=== PATIENT | female | born 1985 | race Caucasian/White ===

== ENCOUNTER 2023-01-08 11:39 | Outpatient (REF) | payer MEDICAID, SELFPAY ==
[2023-01-08 13:16] LABS: MANUAL DIFF FLAG NO
[2023-01-08 13:46] LABS: Basophils Absolute Auto 0.1 X10*3/uL (0.0-0.2); Basophils Percent Auto 0.7 % (0-2); Eosinophils Absolute Auto 0.2 X10*3/uL (0.0-0.4); Eosinophils Percent Auto 2.1 % (0-4); Hematocrit 39.3 % (37.0-47.0); Hemoglobin 13.2 g/dl (12.0-16.0); Imm Gran Abs Auto 0.02 X10*3/uL (0.00-0.03); Imm Gran Pct Auto 0.2 % (0.0-0.4); Lymphocytes Absolute Auto 2.3 X10*3/uL (1.2-4.9); Lymphocytes Percent Auto 26.4 % (20-40); Mean Corpuscular HGB Conc 33.6 g/dl (31.0-35.0); Mean Corpuscular Volume 89.3 fL (80.0-98.0); Mean Platelet Volume 11.4 fL (9.4-12.3); Monocytes Absolute Auto 0.5 X10*3/uL (0.1-1.2); Monocytes Percent Auto 5.6 % (2-11); Neutrophils Absolute Auto 5.5 x10*3/uL (2.0-8.3); Platelet Count 267 X10*3/uL (160-400); Red Cell Distribution Width 12.3 % (11.0-16.0); White Blood Count 8.5 X10*3/uL (4.8-10.8)
[2023-01-08 14:07] LABS: Rheumatoid Factor < 13.0 IU/mL (<15.0)
[2023-01-08 14:08] LABS: Estimated Average Glucose 97 mg/dL
[2023-01-08 14:22] LABS: Erythrocyte Sedimentation Rate 5 MM/HR (0-20)
[2023-01-08 14:52] LABS: Alanine Aminotransferase 10 U/L (0-31); Albumin Level 4.5 g/dL (3.5-5.0); Alkaline Phosphatase 35 U/L (39-117); Anion Gap 13 (12-20); Aspartate Amino Transferase 11 U/L (5-31); Bilirubin Total 0.5 mg/dL (0.0-1.0); Blood Urea Nitrogen 14 mg/dL (9-16); C Reactive Protein < 0.10 mg/dL (< or = 0.50); Calcium 9.4 mg/dL (8.4-10.2); Carbon Dioxide 25 mmol/L (22-29); Chloride 107 mmol/L (96-108); Cholesterol 140 mg/dL; Estimated Glomerular Filt Rate > 60; Glucose Random 82 mg/dL (60-115); HDL Cholesterol 47 mg/dL; LDL Cholesterol Calculated 83 mg/dl; Potassium 4.1 mmol/L (3.3-5.1); Sodium 141 mmol/L (135-145); Total Protein 7.1 g/dL (6.5-8.0); Triglycerides 54 mg/dL
[2023-01-08 15:08] LABS: Thyroid Stimulating Hormone 1.17 uIU/mL (0.32-4.0)
[2023-01-08 15:12] LABS: Syphilis Screen Nonreactive (Nonreactive)
[2023-01-08 16:53] LABS: Appearance Urine Clear; Color Urine Yellow; Glucose Urine UA Negative (Negative); Leukocyte Esterase Urine Negative (Negative); Nitrite Urine Negative (Negative); PH 5.5 (5.0-9.0); Specific Gravity - Urine 1.025 (1.005-1.025); Urine Blood Negative (Negative); Urine Ketones Negative (Negative); Urine Protein Negative (Neg-Trace)
[2023-01-09 11:32] LABS: CT PCR NOT DETECTED (Not Detect.); NG PCR NOT DETECTED (Not Detect.)
[2023-01-10 03:41] LABS: HBS Num1 32.78 mIU/mL (0-7.99); HBc Num1 0.09 S/CO (0.00-0.79); HBsAGNum1 0.35 S/CO (0.00-0.99); HIV AB/AG Nonreactive (Nonreactive); HIV Num 1 0.07 S/CO (0.00-0.99); Hepatitis B Core Antibody Nonreactive (Nonreactive); Hepatitis B Surface Antigen Negative (Negative); ~Hepatitis B Surface Antibody REACTIVE (Nonreactive)
[2023-01-10 03:56] LABS: ~HepC Num1 0.07 S/CO (0.00-0.79); ~Hepatitis C Antibody Nonreactive (Nonreactive)
[2023-01-11 11:33] LABS: Cyclic Citrullinated Peptide <16 UNITS
[2023-01-17 13:09] LABS: Anti Nuclear Antibody Screen POSITIVE (NEGATIVE)
== END 2023-01-08 11:40 | disposition home or self-care (01) ==
LOC: HO.HHCL 11:39
PROVIDERS: Visit Provider Student in an Organized Health Care Education/Training Program
DX: Z00.00 Encounter for general adult medical examination without abnormal findings (principal); I73.00 Raynaud's syndrome without gangrene; Z20.2 Contact with and (suspected) exposure to infections with a predominantly sexual mode of transmission; F10.20 Alcohol dependence, uncomplicated
CPT/HCPCS: 0353U; 80053; 80061; 81003; 82550; 83036; 84443; 85025; 85652; 86038; 86039; 86140; 86200; 86431; 86704; 86706; 86780; 86803; 87340; 87389

== ENCOUNTER 2023-02-15 21:22 | Outpatient (REF) | payer MEDICAID, SELFPAY ==
[2023-02-19 20:34] LABS: HPV mRNA E6/E7 rflx Not Detected (Not Detected)
== END 2023-02-15 21:23 | disposition home or self-care (01) ==
LOC: HO.HHCLNP 21:22
PROVIDERS: Visit Provider Advanced Practice Midwife
DX: Z12.4 Encounter for screening for malignant neoplasm of cervix (principal); Z11.51 Encounter for screening for human papillomavirus (HPV)
CPT/HCPCS: 87624; 88142

== ENCOUNTER 2023-05-15 10:57 | Outpatient (AMB) | payer MEDICAID, SELFPAY ==
--- NOTE | 2023-05-15 10:59 | MHC.OFFVIS ---
Intake Vital Signs 05/15/23 11:08 Height 5 ft 5.08 in Weight 153 lb 14.122 oz BMI 25.5 BP 112/68 Blood Pressure Location Rt brachial Position Sitting Pulse 64 Pulse Source Pulse Oximeter Temp 97.8 F Temp Source Skin Pulse Oximetry (%) 97 Intake Visit Reasons: Raynauds/+ SELENA Intake Note: New pt presents today for consult. C/o morning stiffness, bl hand pain, worse on right wrist. Reports changes in color and painful fingers and toes. 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 Patient stated that she has had Raynaud symptoms since her teens. States that it only happens in the colder winter months. States that her fingers change color in to white, she does not recall any color change to blue or red. States that over the last year or so, her symptoms are more severe. States that currently it affect more fingers and the whitish discoloration extends all the way to the base of the fingers. States that she has managed the condition conservatively over the years. States that when she has an episodes she runs her hands under warm water for 5 minutes and is able to reverse it. She denies ever getting digital tip ulcers. She wears gloves, she has a heated chair when she watches her son playing soccer. States that over the last few months she has been noticing some morning stiffness of her fingers lasting 2-3 minutes. Denies any joint pain or swelling. She denies any skin rashes or skin tightening. Denies any fevers or weight loss. Denies any chest pain, cough or shortness of breath. She has 2 pregnancies, 1 induced and 1 live . No history of DVT/PE. States that her mother had Raynaud's all her life but there is no known family history of an autoimmune rheumatic disease. 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[employer] Female Reproductive History Menstrual Total pregnancies: 2 Full term: 1 Ab induced: 1 Review of Systems Const Denies fatigue and Denies weight loss Musc Denies arthralgias, Denies joint swelling and Reports stiffness Skin/Breast Details: Raynaud's Neuro Reports no additional complaints Endo Denies fatigue Physical Exam Vital Signs: Last Vital Signs Temp 97.8 F 05/15/23 11:08 Pulse 64 05/15/23 11:08 BP 112/68 05/15/23 11:08 Pulse Ox 97 05/15/23 11:08 BMI result Body Mass Index 25.5 Const General: cooperative and healthy appearing Nutritional Appearance: well nourished Orientation/consciousness: patient oriented x3 Limitations: no limitations HEENT Head: Yes normocephalic and Yes atraumatic Mouth: moist mucous membranes Resp Effort & Inspection: normal respiratory effort and able to speak in complete sentences Auscultation: clear to auscultation bilaterally Cardio Rate: regular rate Rhythm: regular rhythm Heart sounds: S1 normal heart sound present and S2 normal heart sound present GI Inspection: No distended Palpation (GI): Soft to palpation and nontender Skin General skin exam: no rashes or lesions noted Neuro General: patient oriented x3 Extrem Other: Mild osteoarthritic changes of both hands with no active synovitis Normal nailfold capillaroscopy of fingers and toes No skin thickening noted Proximal muscle strength 5/5 all 4 extremities No tendon friction rubs of wrists, hands, ankles, knees, elbows Assessment & Plan Assessment & Plan (1) SELENA positive: Code(s): R76.8 - Other specified abnormal immunological findings in serum (2) Raynaud's phenomenon without gangrene: Code(s): I73.00 - Raynaud's syndrome without gangrene Plan: This is a 37-year-old female who is referred for evaluation of a positive SELENA in the context of Raynaud's. Patient has had Raynaud's since her teens. There is no history of digital ulcers. Symptoms are benign and patient is able to reverse it. Labs showed positive SELENA in a he moderate dose nucleolar pattern. There is no skin thickening or in exam. She has normal finger and toe nailfold capillaroscopy. Will order comprehensive serology to screen for underlying autoimmune rheumatic disease. Discussed conservative measures for Raynaud's. Follow-up in 4 weeks Plan I spent 46 minutes reviewing patient's chart, evaluating patient, ordering diagnostic workup, counseling patient and documenting in the chart Orders: Orders Anti DNA DS Antibody Today M32.9 - Systemic lupus erythematosus, unspecified C Reactive Protein Today M32.9 - Systemic lupus erythematosus, unspecified Erythrocyte Sedimentation Rate Today M32.9 - Systemic lupus erythematosus, unspecified Protein Creatinine Ratio, Ur Today M32.9 - Systemic lupus erythematosus, unspecified Sjogren's Antibodies Today M32.9 - Systemic lupus erythematosus, unspecified Scleroderma 12 Panel Today I73.00 - Raynaud's syndrome without gangrene, M34.9 - Systemic sclerosis, unspecified, R76.8 - Other specified abnormal immunological findings in serum Anti Extractable Nuclear Ag Today M32.9 - Systemic lupus erythematosus, unspecified Complement C3 Today M32.9 - Systemic lupus erythematosus, unspecified Complement C4 Today M32.9 - Systemic lupus erythematosus, unspecified UA w Microscopic Today M32.9 - Systemic lupus erythematosus, unspecified Complete Blood Count Auto Diff Today R76.8 - Other specified abnormal immunological findings in serum Comprehensive Met. Panel Today R76.8 - Other specified abnormal immunological findings in serum Coding Level of Care Code New Pt Level 4 (97189) Diagnoses SELENA positive R76.8 Raynaud's phenomenon without gangrene I73.00
[2023-05-15 11:08] VITALS: BP 112/68; PULSE 64; TEMP 36.6; O2SAT 97; BMI 25.5
== END 2023-05-15 11:46 | disposition home or self-care (01) ==
PROVIDERS: PCP Student in an Organized Health Care Education/Training Program; Referring Provider Student in an Organized Health Care Education/Training Program; Visit Provider Student in an Organized Health Care Education/Training Program
DX: R76.8 Other specified abnormal immunological findings in serum (principal); I73.00 Raynaud's syndrome without gangrene
CPT/HCPCS: 99204

== ENCOUNTER → 2023-05-15 10:57 | Outpatient (BNVA) | payer MEDICAID, SELFPAY | PROVIDERS: PCP Student in an Organized Health Care Education/Training Program; Referring Provider Student in an Organized Health Care Education/Training Program; Visit Provider Student in an Organized Health Care Education/Training Program | DX: I73.00 Raynaud's syndrome without gangrene (principal); R76.8 Other specified abnormal immunological findings in serum | CPT/HCPCS: 36415; 80053; 81001; 82570; 84156; 84182; 85025; 85652; 86140; 86160; 86225; 86235; 99202 ==

== ENCOUNTER 2023-05-15 11:50 | Outpatient (REF) | payer MEDICAID, SELFPAY ==
[2023-05-15 13:09] LABS: MANUAL DIFF FLAG NO
[2023-05-15 13:17] LABS: Basophils Absolute Auto 0.1 X10*3/uL (0.0-0.2); Basophils Percent Auto 0.8 % (0-2); Eosinophils Absolute Auto 0.2 X10*3/uL (0.0-0.4); Eosinophils Percent Auto 1.6 % (0-4); Hematocrit 40.1 % (37.0-47.0); Hemoglobin 13.6 g/dl (12.0-16.0); Imm Gran Abs Auto 0.01 X10*3/uL (0.00-0.03); Imm Gran Pct Auto 0.1 % (0.0-0.4); Lymphocytes Absolute Auto 2.9 X10*3/uL (1.2-4.9); Lymphocytes Percent Auto 31.1 % (20-40); Mean Corpuscular HGB Conc 33.9 g/dl (31.0-35.0); Mean Corpuscular Hemoglobin 30.1 pg (27.0-33.0); Mean Corpuscular Volume 88.7 fL (80.0-98.0); Mean Platelet Volume 10.9 fL (9.4-12.3); Monocytes Absolute Auto 0.7 X10*3/uL (0.1-1.2); Neutrophils Absolute Auto 5.5 x10*3/uL (2.0-8.3); Neutrophils Percent Auto 59.4 % (45-73); Platelet Count 244 X10*3/uL (160-400); Red Blood Count 4.52 X10*6/uL (4.20-5.50); Red Cell Distribution Width 12.2 % (11.0-16.0); White Blood Count 9.2 X10*3/uL (4.8-10.8)
[2023-05-15 13:58] LABS: Appearance Urine Clear; Color Urine Yellow; Glucose Urine UA Negative (Negative); Leukocyte Esterase Urine Negative (Negative); Nitrite Urine Negative (Negative); Urine Blood Negative (Negative); Urine Ketones Negative (Negative); Urine Protein Negative (Neg-Trace)
[2023-05-15 14:01] LABS: Bacteria Urine None Seen (None Seen); Erythrocyte Sedimentation Rate 3 MM/HR (0-20); Hyaline Casts Urine 0-2 /LPF (0-2); RBC Urine 0-2 /HPF (0-2); Squamous Epithelial Cell Urine 0-2 /HPF (0-2); WBC Urine 0-5 /HPF (0-5)
[2023-05-15 14:10] LABS: Alanine Aminotransferase 11 U/L (0-31); Albumin Level 4.7 g/dL (3.5-5.0); Alkaline Phosphatase 33 U/L (39-117); Anion Gap 9 (12-20); Aspartate Amino Transferase 16 U/L (5-31); Bilirubin Total 0.4 mg/dL (0.0-1.0); Blood Urea Nitrogen 14 mg/dL (9-16); C Reactive Protein < 0.10 mg/dL (< or = 0.50); Calcium 9.5 mg/dL (8.4-10.2); Carbon Dioxide 28 mmol/L (22-29); Chloride 104 mmol/L (96-108); Estimated Glomerular Filt Rate > 60; Glucose Random 94 mg/dL (60-115); Sodium 137 mmol/L (135-145); Total Protein 7.3 g/dL (6.5-8.0)
[2023-05-15 14:46] LABS: Creatinine Urine 93.24 mg/dL; Total Protein Urine Random < 7 mg/dL (<12)
[2023-05-16 13:08] LABS: Complement C3 80 mg/dL (83-193)
[2023-05-18 22:23] LABS: Anti DNA DS Antibody <1 IU/mL; Antibody to SS-A Antigen <1.0 NEG AI (<1.0 NEG); Antibody to SS-B Antigen <1.0 NEG AI (<1.0 NEG); SM/Ribonucleoprotein Ab <1.0 NEG AI (<1.0 NEG); Smith Protein <1.0 NEG AI (<1.0 NEG)
[2023-05-22 15:33] LABS: Centromere Protein A Ab <11 SI (<11); Centromere Protein B Ab <11 SI (<11); Fibrillarin Ab <11 SI (<11); PM SCL 100 Ab <11 SI (<11); PM SCL 75 Ab <11 SI (<11); RNA Polymerase III RP11 Ab <11 SI (<11); RNA Polymerase III RP155 Ab <11 SI (<11); SCL-70 Extractable Nuclear Ab <11 SI (<11); Th-To Ab <11 SI (<11); U1 SNRNP RNP 70KD <11 SI (<11); U1 SNRNP RNP A <11 SI (<11); U1 SNRNP RNP C <11 SI (<11)
== END 2023-05-15 11:51 | disposition home or self-care (01) ==
LOC: HO.10HDL 11:50
PROVIDERS: Visit Provider Student in an Organized Health Care Education/Training Program
DX: M32.9 Systemic lupus erythematosus, unspecified (principal); R76.8 Other specified abnormal immunological findings in serum; M34.9 Systemic sclerosis, unspecified; I73.00 Raynaud's syndrome without gangrene
CPT/HCPCS: 36415; 80053; 81001; 82570; 84156; 84182; 85025; 85652; 86140; 86160; 86225; 86235

== ENCOUNTER 2023-06-22 07:37 | Outpatient (AMB) | payer MEDICAID, SELFPAY ==
--- NOTE | 2023-06-22 07:40 | A.OFFVIS_ITS ---
Intake Vital Signs 06/22/23 07:41 Height 5 ft 3.5 in Weight 154 lb 8.705 oz BMI 26.9 BP 108/70 Blood Pressure Location Lt brachial Position Sitting Pulse 78 Pulse Source Pulse Oximeter Temp 97.6 F Temp Source Skin Pulse Oximetry (%) 99 Oxygen Delivery Method Room Air Intake Visit Reasons: Raynaud's Intake Note: Pt last seen 05/15/23 presents today for follow up and test results. 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 In the morning today it was quite cold and some of her fingers are white in clinic. Initial history: This is a 37-year-old female who presents for evaluation of a positive SELENA in the context of Raynaud's. Patient stated that she has had Raynaud symptoms since her teens. States that it only happens in the colder winter months. States that her fingers change color in to white, she does not recall any color change to blue or red. States that over the last year or so, her symptoms are more severe. States that currently it affect more fingers and the whitish discoloration extends all the way to the base of the fingers. Stat es that she has managed the condition conservatively over the years. States that when she has an episodes she runs her hands under warm water for 5 minutes and is able to reverse it. She denies ever getting digital tip ulcers. She wears gloves, she has a heated chair when she watches her son playing soccer. States that over the last few months she has been noticing some morning stiffness of her fingers lasting 2-3 minutes. Denies any joint pain or swelling. She denies any skin rashes or skin tightening. Denies any fevers or weight loss. Denies any chest pain, cough or shortness of breath. She has 2 pregnancies, 1 induced and 1 live . No history of DVT/PE. States that her mother had Raynaud's all her life but there is no known family history of an autoimmune rheumatic disease. 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 [employer] Review of Systems Skin/Breast Details: Raynaud's Physical Exam Vital Signs: Last Vital Signs Temp 97.6 F 06/22/23 07:41 Pulse 78 06/22/23 07:41 BP 108/70 06/22/23 07:41 Pulse Ox 99 06/22/23 07:41 Oxygen Delivery Method Room Air 06/22/23 07:41 BMI result Body Mass Index 26.9 Const General: cooperative and healthy appearing Nutritional Appearance: well nourished Orientation/consciousness: patient oriented x3 Limitations: no limitations HEENT Head: Yes normocephalic and Yes atraumatic Mouth: moist mucous membranes Resp Effort & Inspection: normal respiratory effort and able to speak in complete sentences Skin General skin exam: no rashes or lesions noted Neuro General: patient oriented x3 Extrem Other: Mild osteoarthritic changes of both hands with no active synovitis Clear Raynaud's with few white and cool fingertips Normal nailfold capillaroscopy of fingers and toes No skin thickening noted Assessment & Plan Assessment & Plan (1) SELENA positive: Code(s): R76.8 - Other specified abnormal immunological findings in serum (2) Raynaud's phenomenon without gangrene: Code(s): I73.00 - Raynaud's syndrome without gangrene Plan: This is a 37-year-old female who is referred for evaluation of a positive SELENA in the context of Raynaud's. Patient has had Raynaud's since her teens. There is no history of digital ulcers. Symptoms are benign and patient is able to reverse it. Labs showed positive SELENA in homogeneous nucleolar pattern. There is no skin thickening or in exam. She has normal finger and toe nailfold capillaroscopy. Comprehensive serology connective tissue diseases is negative There is no evidence of an underlying autoimmune rheumatic disease. This is likely primary Raynaud's. Discussed conservative measures for Raynaud's. Such as keeping core and extremity temperature warm, wearing gloves, considering glove warmers, heated gloves. Advised patient to come back to clinic if she has any new or worsening symptoms. Plan I spent 16 minutes reviewing patient's chart, evaluating patient, counseling patient and documenting in the chart Coding Level of Care Code Est Pt Level 3 (10844) Diagnoses SELENA positive R76.8 Raynaud's phenomenon without gangrene I73.00
[2023-06-22 07:41] VITALS: BP 108/70; PULSE 78; TEMP 36.4; O2SAT 99; BMI 26.9
== END 2023-06-22 07:54 | disposition home or self-care (01) ==
PROVIDERS: PCP Student in an Organized Health Care Education/Training Program; Visit Provider Student in an Organized Health Care Education/Training Program
DX: R76.8 Other specified abnormal immunological findings in serum (principal); I73.00 Raynaud's syndrome without gangrene
CPT/HCPCS: 99213

== ENCOUNTER → 2023-06-22 07:37 | Outpatient (BNVA) | payer MEDICAID, SELFPAY | PROVIDERS: PCP Student in an Organized Health Care Education/Training Program; Visit Provider Student in an Organized Health Care Education/Training Program | DX: R76.8 Other specified abnormal immunological findings in serum (principal); I73.00 Raynaud's syndrome without gangrene | CPT/HCPCS: 99212 ==

== ENCOUNTER 2024-02-05 18:12 | Outpatient (REF) | payer MEDICAID, SELFPAY ==
[2024-02-10 09:02] LABS: HPV mRNA E6/E7 Not Detected (Not Detected)
== END 2024-02-05 18:13 | disposition home or self-care (01) ==
LOC: HO.HHCLNP 18:12
PROVIDERS: Visit Provider Advanced Practice Midwife
DX: Z12.4 Encounter for screening for malignant neoplasm of cervix (principal)
CPT/HCPCS: 36415; 87624; 88175

== ENCOUNTER 2024-03-04 09:14 | Outpatient (REF) | payer MEDICAID, SELFPAY ==
--- NOTE | ~2024-03-04 | XR_ITS ---
EXAMINATION: XR FOOT, RIGHT XR FOOT, LEFT CLINICAL INFORMATION: Heel pain. Pain times years. No injury. COMPARISON: None available. TECHNIQUE: AP, lateral, and oblique views of the left foot and AP and lateral views of the right foot. FINDINGS: RIGHT FOOT: No fracture or malalignment. Bone mineralization is normal. Joint spaces appear well preserved. Small enthesopathic spurs are present at the Achilles tendon insertion and plantar fascial origin on the calcaneus. No erosions or periostitis. Soft tissues are unremarkable on these images. LEFT FOOT: No fracture or malalignment. Bone mineralization is normal. Joint spaces appear well preserved. Soft tissues are unremarkable. Small enthesopathic spur is present at the Achilles tendon insertion on the calcaneus. Small os supranaviculare. XR/XR foot LT min 3V IMPRESSION: 1. Small enthesopathic spurs at the Achilles tendon insertions on the calcaneus bilaterally. 2. Small enthesopathic spur at the right plantar fascial origin. Electronically signed by: Raul Wasserman MD 03/07/2024 11:50 AM EDT
--- NOTE | ~2024-03-04 | XR_ITS ---
EXAMINATION: XR FOOT, RIGHT XR FOOT, LEFT CLINICAL INFORMATION: Heel pain. Pain times years. No injury. COMPARISON: None available. TECHNIQUE: AP, lateral, and oblique views of the left foot and AP and lateral views of the right foot. FINDINGS: RIGHT FOOT: No fracture or malalignment. Bone mineralization is normal. Joint spaces appear well preserved. Small enthesopathic spurs are present at the Achilles tendon insertion and plantar fascial origin on the calcaneus. No erosions or periostitis. Soft tissues are unremarkable on these images. LEFT FOOT: No fracture or malalignment. Bone mineralization is normal. Joint spaces appear well preserved. Soft tissues are unremarkable. Small enthesopathic spur is present at the Achilles tendon insertion on the calcaneus. Small os supranaviculare. XR/XR foot RT 2V IMPRESSION: 1. Small enthesopathic spurs at the Achilles tendon insertions on the calcaneus bilaterally. 2. Small enthesopathic spur at the right plantar fascial origin. Electronically signed by: Raul Wasserman MD 03/07/2024 11:50 AM EDT
[2024-03-04 11:24] LABS: Hemoglobin 13.3 g/dl (12.0-16.0); Mean Corpuscular HGB Conc 34.1 g/dl (31.0-35.0); Mean Platelet Volume 10.9 fL (9.4-12.3); Platelet Count 262 X10*3/uL (160-400); Red Blood Count 4.43 X10*6/uL (4.20-5.50); Red Cell Distribution Width 12.1 % (11.0-16.0); White Blood Count 8.3 X10*3/uL (4.8-10.8)
[2024-03-04 11:36] LABS: Estimated Average Glucose 103 mg/dL; Hemoglobin A1c % 5.2 % (<6.0)
[2024-03-04 12:08] LABS: Alanine Aminotransferase 9 U/L (0-31); Albumin Level 4.4 g/dL (3.5-5.0); Alkaline Phosphatase 32 U/L (39-117); Anion Gap 10 (12-20); Aspartate Amino Transferase 14 U/L (5-31); Bilirubin Total 1.1 mg/dL (0.0-1.0); Blood Urea Nitrogen 13 mg/dL (9-16); Calcium 9.3 mg/dL (8.4-10.2); Carbon Dioxide 27 mmol/L (22-29); Chloride 107 mmol/L (96-108); Cholesterol 143 mg/dL (<200); Estimated Glomerular Filt Rate > 60; Glucose Random 101 mg/dL (60-115); HDL Cholesterol 48 mg/dL (>40); LDL Cholesterol Calculated 77 mg/dL (<100); Potassium 3.9 mmol/L (3.3-5.1); Sodium 140 mmol/L (135-145); Triglycerides 91 mg/dL (<150)
[2024-03-04 12:12] LABS: HBS Num1 33.96 mIU/mL (0-7.99); HBc Num1 0.23 S/CO (0.00-0.79); HBsAGNum1 0.23 S/CO (0.00-0.99); HIV AB/AG Nonreactive (Nonreactive); HIV Num 1 0.05 S/CO (0.00-0.99); Hepatitis B Core Antibody Nonreactive (Nonreactive); Hepatitis B Surface Antigen Negative (Negative); ~HepC Num1 0.11 S/CO (0.00-0.79); ~Hepatitis B Surface Antibody REACTIVE (Nonreactive); ~Hepatitis C Antibody Nonreactive (Nonreactive)
[2024-03-04 12:16] LABS: TSH reflex Free T4 0.76 uIU/mL (0.32-4.0)
[2024-03-04 12:26] LABS: Syphilis Screen Nonreactive (Nonreactive)
== END 2024-03-04 09:15 | disposition home or self-care (01) ==
LOC: HO.HHCL 09:14
PROVIDERS: Visit Provider Student in an Organized Health Care Education/Training Program
DX: Z00.00 Encounter for general adult medical examination without abnormal findings (principal); M79.671 Pain in right foot; M79.672 Pain in left foot
CPT/HCPCS: 36415; 73620; 73630; 80053; 80061; 83036; 84443; 85027; 86704; 86706; 86780; 86803; 87340; 87389

== ENCOUNTER 2025-02-10 17:36 | Outpatient (REF) | payer MEDICAID, SELFPAY | END 2025-02-10 17:37 | disposition home or self-care (01) | LOC: HO.HHCLNP 17:36 | PROVIDERS: Visit Provider Advanced Practice Midwife | DX: Z12.4 Encounter for screening for malignant neoplasm of cervix (principal); Z11.51 Encounter for screening for human papillomavirus (HPV) | CPT/HCPCS: 87626; 88175 ==

== ENCOUNTER 2025-02-27 11:37 | Outpatient (REF) | payer BC, MEDICAID, SELFPAY ==
--- OUTSIDE RECORDS SUMMARY | 2025-02-27 12:37 | XMS_ITS | Encounter Summary ---
Author Organization [employer] Address [address] [place] [address] 7 [place] [address] Care Team Providers Care Alumina Plant Supervisor Name Role Phone Viridiana Ruth MD Primary Care Pro vider Reason for Visit * Reason Comments Med Refill Encounter Details Date Type Department Care Team ([facility] st Contact Info) Description 01/11/2023 Refill [facility] [address] [place], [place] [phone] Viridiana Ruth MD [address] [place] [address] Social History Tobacco Use Types Packs/Day Years Used Date Smoking Tobacco: Never Passive Smoke Exposure: Never Smokeless Tobacco: Never Alcohol Use Standard Drinks/Week Comments Not Currently 0 (1 standard drink = 0.6 oz pure alcohol) 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 No / Unsure 01/08/2023 9:12 AM EDT documented as of this encounter Plan of Treatment Not on file documented as of this encounter Visit Diagnoses Not on filedocumented in this encounter Additional Health Concerns Assessment Noted Time PHQ-9 Depression Total Score: 10 023 9:25 AM EDT documented as of this encounter Care Teams Alumina Plant Supervisor Relationship Specialty Start Date End Date Viridiana Ruth MD [address] [place] [id number] PCP - General Internal Medicine 11/10/22 documented as of this encounter
--- OUTSIDE RECORDS SUMMARY | 2025-02-27 12:37 | XMS_ITS | Encounter Summary ---
Author Organization [employer] Address [address] [facility] [address] [place] [address] Care Team Providers Care Small Equipment Operator Name Role Phone Viridiana Ruth MD Primary Care Pro vider Encounter Details Date Type Department Care Team ([facility] st Contact Info) Description 02/16/2025 Results Follow-Up [facility] [address] [place], [place] [phone] Rochelle Baldwin, JAIDA [address] [place] [address] Pap Smear Social History Tobacco Use Types Packs/Day Years Used Date Smoking Tobacco: Never Passive Smoke Exposure: Never Smokeless Tobacco: Never Alcohol Use Standard Drinks/Week Comments Not Currently 0 (1 standard drink = 0.6 oz pure alcohol) hx of alcoholism since 20 y of age -stopped 3 y -2021 Depression Answer Date Recorded Patient Health Questionnaire-9 Score 0 01/19/2025 Patient Health Questionnaire-9 Score 0 01/19/2025 Last PHQ-9: Questionnaire Data Not on file 0 01/19/2025 Housing Stability Answer Date Recorded What is your housing situation today? I have russel hoffman 01/12/[address] you li ve. Do you have problems with any of the following? None of the above 01/12/2025 Food Insecurity Answer Date Recorded Within the past 12 months, y ou worried that your food would run out before you got money to buy more: Never True 01/12/2025 Within the past 12 months,th e food you bought just didn't last and you didn't have enough money to get more: Never True Transportation Answer Date Recorded In the past 12 months, has l ack of transportation kept you from medical appts, meetings, work or from getting things needed for daily living? No 01/12/2025 Utilities Answer Date Recorded In the past 12 months, has t he electric, gas, oil or water company threatened to shut off services in your home? No 01/12/2025 Depression Answer Date Recorded Patient Health Questionnaire-2 Score 0 01/19/2025 Internet Access Answer Date Recorded Internet Access Q1 Yes 01/12/2025 Internet Access Q2 Not on file 01/12/2025 Comments No Sex and Gender Information Value Date Recorded Sex Assigned at Female 05/01/2022 10:36 AM EDT Legal Sex Female 10:36 AM EDT Gender Identity Female 05/01/2022 10:36 AM EDT Sexual Orientation Bisexual 01/08/2023 9: 46 AM EDT documented as of this encounter Plan of Treatment Not on file documented as of this encounter Visit Diagnoses Not on filedocumented in this encounter Additional Health Concerns Assessment Noted Time PHQ-9 Depression Total Score: 0 01/20/20 25 2:04 PM EDT documented as of this encounter Care Teams Small Equipment Operator Relationship Specialty Start Date End Date Viridiana Ruth MD [address] [place] [id number] PCP - General Internal Medicine 11/10/22 documented as of this encounter
--- OUTSIDE RECORDS SUMMARY | 2025-02-27 12:37 | XMS_ITS | Clinical Summary ---
Author Organization [employer] Address [address] [facility] [address] [place] [address] Care Team Providers Care Senior Payroll Manager Name Role Phone Viridiana Ruth MD Primary Care Pro vider Allergies No known active allergies Medications * This document contains information received from the source organization and may not represent a complete record from that organization. No known medications Active Problems Problem Noted Date Diagnosed Date Overweight (BMI 25.0-29.9) 01/19/2025 Abnormal tympanic membrane of both ears 01/20/20 25 History of alcohol abuse 03/08/2024 Family history of cancer 01/10/2024 Bilateral foot pain 01/10/2024 Nevus of multiple sites 01/10/2024 SELENA positive 02/06/2023 Assessment & Plan (02/06/2023 6:15 AM EDT): Reports also arthralgia in her hands and in am rigidity < 20 min , no erythema ,no swelling, myalgias in muscle of hands ,arms. 12/2022: SELENA reported as + 1:80 w nuclear homogeneous nucleolar findings. Per report, possibly associated w systemic sclerosis, scleroderma, or polymyositis overlap. ESR/CRP wnl. Anti-CCP rheumatoid factor neg. CK wnl. -Referred to investment analyst today. Raynaud disease 01/08/2023 Assessment & Plan (02/06/2023 6:08 AM EDT): -Pt reports having since she was in her 20 y of age extreme cold intolerance in her hands and feet ,when exposed to cold temperature fingers get cold and pale and having pain associated,States symptoms are getting worse with time.Denies black/bluish discoloration of fingers. Reports also arthralgia in her hands and in am rigidity < 20 min , no erythema ,no swelling, myalgias in muscle of hands ,arms.Denies skin rashes,fever, Dysphagia, gastroesophageal reflux,Skin thickening, sclerodactyly nor Cardiopulmonary abnormalities. Does reports mother has dx of Raynauld dx Denies Occupational and environmental exposures,not taking medications. Pt showed me videos in her phone of her hands been extremely pale ( from 2nd to 5th digits ) and improved under hot water. -Advise pt to avoid cold exposure -Advise to avoid vasoconstriction Rx. Explained to pt today which Rx to avoid. -Start Amlodipine 2.5 mg daily px at last visit but not started yet -Given that she reported hand pain and rigidity in the AM, done SELENA reported as + 1:80 w nuclear homogeneous nucleolar findings. Per report, possibly associated w systemic sclerosis, scleroderma, or polymyositis overlap. -Referred today to investment analyst for + SELENA / Raynaud Syndrome Assessment & Plan (01/08/2023 9:29 PM EDT): -Pt reports having since she was in her 20 y of age extreme cold intolerance in her hands and feet ,when exposed to cold temperature fingers get cold and pale and having pain associated,States symptoms are getting worse with time.Denies black/bluish discoloration of fingers. Reports also arthralgia in her hands and in am rigidity < 20 min , no erythema ,no swelling, myalgias in muscle of hands ,arms.Denies skin rashes,fever, Dysphagia, gastroesophageal reflux,Skin thickening, sclerodactyly nor Cardiopulmonary abnormalities. Does reports mother has dx of Raynauld dx Denies Occupational and environmental exposures,not taking medications. Pt showed me videos in her phone of her hands been extremely pale ( from 2nd to 5th digits ) and improved under hot water. -Advise pt to avoid cold exposure -Advise to avoid vasoconstriction Rx. Explained to pt today which Rx to avoid. -Start Amlodipine 2.5 mg daily and if tolerated and needed can increase up to 5 mg / d (2 tablets / d). -Given that she reported hand pain and rigidity in the AM, will check autoimmune panel. -Will monitor at next visit. Depression with anxiety 01/08/2023 Assessment & Plan (02/06/2023 6:13 AM EDT): PHQ-9: 9 <-- 10 at last visit. States feeling better now. -Reports feeling sad, anxious since last 17 years , denies jordana,hallucinations. Denies SI , never tx for depression before. Denies fx hx of psychiatric conditions. -Already started care w outpt psychotherapy. -Will consider antidepressants if no improvement w therapy. I will follow pt in 3 mo. Assessment & Plan (01/08/2023 2:09 PM EDT): Assessment: Sun was engaged with active reflective listening and open-ended questions. Assessed symptoms, risks, and social supports with direct questions. Discussed current symptoms intensity and frequency. Emotions were normalized and validated. She identified use of cannabis as coping mechanisms and her family as protective factors. Provided psychoeducation around coping mechanism to manage anxiety and depression. Discussed OP therapy and Medication Management, she reported was interested in Ind. Therapy only at this time. Provided education around integrated medicine and the options of follow up BE's as needed. Provided contact information should questions or concerns arise. Plan: Sun will engage in effective coping mechanisms provided at least 2 times per day for 6 months to learn to manage her sxs. Referral for Ind. Therapy will be submitted. Patient with lack of motivation, feeling down, sleeping too much, little energy, trouble with concentration, feeling anxious, persistent worry, unable to relax at times, irritable at times, fearfulness of something bad might happened. She denies SI, HI, AVH or self-harm. 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 Patient will benefit from Ind. Therapy ( CBT to learn different ways to identify and manage the factors that contribute to her anxiety and depressive sxs. At this time Sun Ferrer meets criteria for Visit Diagnoses: Problem List Items Addressed This Visit Other Depression with anxiety Patient ready to address current needs Yes Strengths include Sun is in action stage fo change and her motivation will serve as treatment engagement. PLAN: 1. Follow up with [facility]: Not recommended for follow-up 2. Patient goal is to learn to manage her sxs. 3. Behavioral Recommendations a. Ind. Therapy b. Use of coping Skills discussed c. [facility] contact number for support. Assessment & Plan (01/08/2023 9:33 PM EDT): PHQ-9 10. -Reports feeling sad, anxious since last 17 years , denies jordana,hallucinations. Denies SI , never tx for depression before. Denies fx hx of psychiatric conditions. - spoke w pt today and will refer to outpt psychotherapy. -Will consider antidepressants if no improvement w therapy. I will follow pt in 4 wk. Health care maintenance 01/08/2023 Assessment & Plan (02/06/2023 6:13 AM EDT): -Pap smear: 01/2020 Ascus/HPV neg--- referred today to Georgia Mckenna for Pap smear -Contraception: none, denies active sexual life. Advise to let me know once it starts to begin contraception. Advise condom use if needed. -labs x annual exam done in 12/2022 - not in [facility] system, but to be scanned -Vaccines: s/p COVID-19 x 2, bivalent x1,, Tdap 2022, HPV advised to start series - pt will think about it and go to vaccine clinic if interested, Hep B immune Assessment & Plan (01/08/2023 9:37 PM EDT): -Pap smear: 01/2020 Ascus/HPV neg--- referred today to Georgia Mckenna for Pap smear -Contraception: none, denies active sexual life. Advise to let me know once it starts to begin contraception. Advise condom use if needed. -labs x annual exam today in fasting -pt agreed to have STI testing including HIV to have for baseline -Vaccines: s/p COVID-19 x 2, bivalent today, Tdap today, HPV advised to start series - pt will think about it and go to vaccine clinic if interested. Atypical squamous cells of u ndetermined significance (ASCUS) on Papanicolaou smear of cervix 01/19/2021 Encounters Date Type Department Care Team Description 02/16/2025 Results Follow-Up [facility] [address] [place] [phone] Skyler Mckenna CNM Pap Smear 02/10/2025 3:15 PM EDT Office Visit [facility] [address] [place] [address] Skyler Mckenna CNM Cervical cancer screening (Primary Dx); Abnormal uterine bleeding 02/10/2025 Travel 02/10/2025 Telephone [facility] [address] [place] [phone] Rachel TrinhUNADILLA, [place] 01/26/2025 Telephone [facility] [address] [place] [address] [phone] Rachel TrinhUNADILLA, [place] 01/19/2025 2:00 PM EDT Office Visit [facility] [address] [place] [phone] Viridiana Ruth MD Abnormal tympanic membrane of both ears (Primary Dx); Dietary counseling; Exercise counseling; Annual physical exam; Raynaud's disease without gangrene; Health care maintenance; Family history of cancer; Depression with anxiety; History of alcohol abuse; Bilateral foot pain; Nevus of multiple sites; Overweight (BMI 25.0-29.9) 01/19/2025 Travel 01/16/2025 Telephone [facility] [address] [place] [phone] Viridiana Ruth MD Chart Prep 01/12/2025 Patient Outreach [facility] [address] [place], [place] [phone] Viridiana Ruth MD Pre-visit Planning (SDOH negative. Tobacco screening negative) from Last 3 Months Immunizations Immunization Administration Dates Next Due Pfizer Covid-19 Vaccine 12+ Bivalent 01/08/2023 Tdap 01/08/2023 Family History Medical History Relation Name Comments HTN Father Prostate cancer Father breast cancer Mother also [place] macroglobulinemia Relation Name Status Comments Father Mother Social History Tobacco Use Types Packs/Day Years Used Date Smoking Tobacco: Never Passive Smoke Exposure: Never Smokeless Tobacco: Never Tobacco Cessation:Counseling Given: Not Answered Alcohol Use Standard Drinks/Week Comments Not Currently [...] Orientation Bisexual 01/08/2023 9: 46 AM EDT Last Filed Vital Signs Vital Sign Reading Time Taken Comments Blood Pressure 138/74 02/10/2025 4:00 PM EDT Pulse 76 02/10/2025 4:00 PM EDT Temperature 36.6 C (97.9 F) 02/10/2025 4:00 PM EDT Respiratory Rate 14 02/10/2025 4:00 PM EDT Oxygen Saturation 98% 02/10/2025 4:00 PM EDT Inhaled Oxygen Concentration - - Weight 80 kg (176 lb 6.4 oz) 02/10/2025 4:00 PM EDT Height 167.6 cm (5' 6 ) 01/19/2025 2:03 PM EDT Body Mass Index 28.47 01/19/2025 2:03 PM EDT Plan of Treatment Health Maintenance Due Date Last Done Comments Family Planning (PISQ) 2000 HPV Vaccines (1 - 3-dose series) 2000 Hepatitis B Vaccines (1 of 3 - 19+ 3-dose series) 2004 COVID-19 Vaccine (4 - 2023- season) 2024 01/08/2023, 08/24/2020, 07/27/2020 Influenza Vaccine (#1) 2025 SDOH Screening 01/12/2026 01/12/2025 Alcohol/Substance Use Screening 01/19/2026 01/19/2025 Depression Screening 01/19/2026 01/19/2025, 01/20/20 Disability Screening 01/19/2026 01/19/2025 Tobacco Screening 02/10/2026 02/10/2025 Cervical Cancer Screening 02/10/2030 HPV/Cotest 02/10/2030 02/10/2025, 08/0 12/2023, 02/15/2023, Additional history exists Pap Smear 02/10/2030 02/10/2025, 08/0 12/2023, 02/14/2023, Additional history exists DTaP/Tdap/Td Vaccines (2 - Td or Tdap) 01/08/2033 01/08/2023 Zoster Vaccines (1 of 2) 2035 RSV Patients and Patients Aged 60 years or older (1 - 1-dose 75+ series) 2060 HIV Screening Completed 03/04/2024, 01/19/2021 Hepatitis C Screening Completed 03/04/2024, 021 HIB Vaccines Aged Out No longer eligi ble based on patient's age to complete this topic Hepatitis A Vaccines Aged Out No long er eligible based on patient's age to complete this topic IPV Vaccines Aged Out No longer eligi ble based on patient's age to complete this topic Meningococcal B Vaccine Aged Out No l onger eligible based on patient's age to complete this topic Meningococcal Vaccine Aged Out No jeni kaitlin eligible based on patient's age to complete this topic Pneumococcal Vaccine: Pediatrics (0 to 5 Years) and At-Risk Patients (6 to 49) Years Aged Out No longer eligible based on patient's age to complete this topic RSV under 20 months Aged Out No longe r eligible based on patient's age to complete this topic Rotavirus Vaccines Aged Out No longer eligible based on patient's age to complete this topic Procedures Procedure Name Priority Date/Time Associated Diagnosis Comments PAP SMEAR Routine 02/10/2025 4:03 PM EDT Cervical cancer screening HPV DNA, LOW/HIGH RISK Routine 02/10/2025 4:03 PM EDT Bilateral foot pain HEPATITIS C AB W/REFL TO HCV RNA, QN, PCR Routine 03/04/2024 9:16 AM EDT Annual physical exam HIV 1/2 ANTIGEN/ANTIBODY, FOURTH GENERATION W/RFL Routine 03/04/2024 9:16 AM EDT Annual physical exam from Last 3 Months or Most Recently Relevant to Health Maintenance Results * HPV DNA, Low/High Risk (02/10/2025 4:03 PM EDT) HPV High Risk Negative Negative [facility] HPV Genotype 16 Negative Negative [facility] HPV Genotype 18 Negative Negative [facility] Comment:HPV testing performe d at [facility] (CLIA#[id number]), [address] [place] [address].Testing for HPV was performed using the Philip DANIELA 6800system. The presence of HPV in the female genital tract isassociated with a number of diseases, including cervicalcarcinoma. The HPV DNA high risk pool tests for HPV 31, 33,35, 39, 45, 51, 52, 56, 58, 59, 66 and 68. The testing forHPV 16 and 18 genotypes has also been performed. A positiveresult indicates detection of nucleic acid sequences fromone or more subtypes, whereas a negative result indicatessuch sequences were not detected. 02/10/2025 4:03 PM EDT 02/11/2025 8:14 AM EDT us Skyler SENA LAB BLOOD ORDERABLES Lisa an Result [facility] [address] [place] [phone] * Pap Smear (02/10/2025 4:03 PM EDT) Swab Cervix uteri structure / Unknown 02/10/2025 4:03 PM EDT 02/11/2025 8:14 AM EDT Dillon [facility] - 02/13/2025 10:14 AM EDT ----- ------- Name: Sun Ferrer Age/Sex: 39/F : 1985 Unit#: [id number] Attend Dr: SKYLER MCKENNA CNM Re02/10/25 Status: [facility] Disch: ----- ------- SPEC : [id number] RECD: 02/11/25 STATUS: SANTINO BROOKS NUM: [id number] KAREN: 02/10/25-1602 [facility] DR: SKYLER MCKENNA CNM ENTERED: 02/11/25 SP TYPE: Pap Smr OT DR: ORDERED: Pap Smear Interpretation Satisfactory for evaluation. Negative for intraepithelial lesion or malignancy. No endocervical cells seen. HPV High Risk: Negative HPV Genotyping 16: Negative HPV Genotyping 18: Negative Clinical Information LMP: Unknown date Previous PAP test: 2023, NIL/HPV neg, previous ASCUS/HPV neg x2 Material Received ThinPrep-Cervical PAP Disclaimer As of April 23, 2024, the technical services to include automated prescreening performed by the ThinPrep Imaging System, PAP screening and HPV testing will be performed at [facility] (CLIA #[id number]), [address] [place] [address]. Testing for HPV was performed using the Philip DANIELA 6800 system. The presence of HPV in the female genital tract is associated with a number of diseases, including cervical carcinoma. The HPV DNA high risk pool tests for HPV 31, 33, 35, 39, 45, 51, 52, 56, 58, 59, 66 and 68. The testing for HPV 16 and 18 genotypes has also been performed. A positive result indicates detection of nucleic acid sequences from one or more subtypes, whereas a negative result indicates such sequences were not detected. All professional services are performed by [facility] ([address] [place] [address]; ; CLIA #[id number]). The PAP Test is a screening procedure with the inherent possibility of both false negative and false positive results. Results should be interpreted in the context of historic and current clinical findings. Reliability of the PAP Test is enhanced by performing the test on a regular repetitive basis. ----- ------- Signed (signature on file) THOR Doyle (ASC) 02/13/25 1014 ----- ------- END OF REPORT us Skyler SENA LAB CYTOLOGY ORDERABLES F inal Result Performing Organization Address [facility]/ZIP Co de Phone Number [facility] [address] [place] [address] [phone] * Hepatitis C Antibody with Reflex to HCV, RNA, Quantitative, Real-Time PCR (03/04/2024 9:16 AM EDT) Hepatitis C Antibody Nonreactive Nonreactive [facility] Comment:Antibodies to HCV no t detected; does not exclude early acuteHCV infection. Blood Venous blood specimen / Unknown 03/04/2024 9:16 AM EDT 03/04/2024 11:15 AM EDT Viridiana Anderson MD LAB BLOOD ORDERAB LES Final Result Performing Organization Address [facility]/ZIP Co de Phone Number [facility] [address] [place] [phone] [phone] * HIV-1/2 Antigen and Antibodies, Fourth Generation, with Reflexes (03/04/2024 9:16 AM EDT) HIV AB/AG Nonreactive Nonreactive [facility] Comment:HIV-1 p24 Ag and/or HIV-1/HIV-2 Ab not detected.A test result that is nonreactive does not exclude thepossibility of exposure to or infection with HIV-1 and/orHIV-2. Nonreactive results in this assay for individualswith prior exposure to HIV-1 and/or HIV-2 may be due toantigen and antibody levels that are below the limit ofdetection of this assay.The [employer] HIV Ag/Ab Combo assay result andsupplemental assay results should be interpreted inconjunction with the patient's clinical presentation,history and other laboratory results. If the results areinconsistent with clinical evidence, additional testing issuggested to confirm the result. Blood Venous blood specimen / Unknown 03/04/2024 9:16 AM EDT 03/04/2024 11:15 AM EDT Viridiana Anderson MD LAB BLOOD ORDERAB LES Final Result [facility] [address] [place] [phone] from Last 3 Months or Most Recently Relevant to Health Maintenance Insurance [employer] Care Teams Senior Payroll Manager Relationship Specialty Start Date End Date Viridiana Ruth MD [address] [place] [phone] PCP - General Internal Medicine 11/10/22
--- OUTSIDE RECORDS SUMMARY | 2025-02-27 12:37 | XMS_ITS | Encounter Summary ---
Author Organization [employer] Address [address] [place] [address] [place] [address] Care Team Providers Care Strike Planning Applications Name Role Phone Viridiana Ruth MD Primary Care Pro vider Reason for Visit * Reason Onset Date Comments Appointment Request 01/25/2023 Encounter Details Date Type Department Care Team ([facility] st Contact Info) Description 01/25/2023 Telephone [facility] [address] [place], [place] [phone] Viridiana Ruth MD [address] [place] [address] Appointment Request Social History Tobacco Use Types Packs/Day Years [...] AM EDT documented as of this encounter Miscellaneous Notes * Telephone Encounter - Ashley Levy - 01/25/2023 3:31 PM EDT Tc from patient requesting to r/s PAP appt from 02/01/23. Details: PAP ok per Dr. Gonzales documented in this encounter Plan of Treatment Not on file documented as of this encounter Visit Diagnoses Not on filedocumented in this encounter Additional Health Concerns Assessment Noted Time PHQ-9 Depression Total Score: 10 023 9:25 AM EDT documented as of this encounter Care Teams Strike Planning Applications Relationship Specialty Start Date End Date Viridiana Ruth MD [address] [place] [phone] PCP - General Internal Medicine 11/10/22 documented as of this encounter
--- OUTSIDE RECORDS SUMMARY | 2025-02-27 12:37 | XMS_ITS | Clinical Summary ---
Author Organization 175 [facility] Address [address] [place] [address] Phone Care Team Providers Care Boiler House Supervisor Name Role Phone Viridiana Ruth MD Primary Care Pro vider Allergies No known active allergies Medications No known medications Active Problems Problem Noted Date Diagnosed Date Atypical squamous cells of u ndetermined significance (ASC-US) on cervical Pap smear 05/28/2024 Raynaud's disease 05/28/2024 Depression with anxiety 05/28/2024 SELENA positive 05/28/2024 Bilateral foot pain 05/28/2024 Nevus of multiple sites 05/28/2024 History of alcohol abuse 05/28/2024 Encounters Date Type Department Care Team Description 02/17/2025 5:15 PM EDT - 02/17/2025 11:59 PM EDT Hospital Encounter [facility] MRI [address] [place] [phone] Plantar fascial fibromatosis Discharge Disposition: Home or Self Care 02/17/2025 5:15 PM EDT - 02/17/2025 11:59 PM EDT Hospital Encounter [facility] MRI [address] [place] [phone] Plantar fascial fibromatosis Discharge Disposition: Home or Self Care 02/09/2025 2:45 PM EDT Office Visit Orthopedic Surgery [facility] [address] [facility] [address] [place] [phone] Rickie Landa DPM Plantar fascial fibromatosis (Primary Dx); Follow-up exam; Equinus contracture of ankle from Last 3 Months Immunizations Name Administration Dates Next Due Moderna SARS-CoV-2 COVID-19, mRNA, LNP-S, preservative free 01/08/2023 Social History Tobacco Use Types Packs/Day Years Used Date Smoking Tobacco: Never Assessed Comments Unknown Sex and Gender Information Value Date Recorded Sex Assigned at Female 02/24/2025 11:43 AM EDT Legal Sex Female 11:39 AM EDT Gender Identity Female 02/24/2025 11:43 AM EDT Sexual Orientation Choose not to disclose 2024 11:43 AM EDT Last Filed Vital Signs Vital Sign Reading Time Taken Comments Blood Pressure - - Pulse - - Temperature - - Respiratory Rate - - Oxygen Saturation - - Inhaled Oxygen Concentration - - Weight 72.6 kg (160 lb) 11/12/2024 3:04 PM EDT Height 167.6 cm (5' 5.98 ) 11/12/2024 3:04 PM ED T Body Mass Index 25.84 11/12/2024 3:04 PM EDT Plan of Treatment Upcoming Encounters Date Type Department Care Team ([facility] st Contact Info) Description 03/19/2025 11:00 AM EDT Evaluation Outpatient Rehabilitation [address] [phone] Bishnu Cerda, FADUMO 03/30/2025 1:30 PM EDT Office Visit Orthopedic Surgery - [place] [address] [phone] Rickie Landa, DPM [address] [address] Health Maintenance Due Date Last Done Comments Hepatitis B Vaccines (1 of 3 - 19+ 3-dose series) 2004 COVID-19 Vaccine ( - 2023-2 5 season) 2024 01/08/2023, 08/24/2020, 07/27/2020 Social Influencers of Health Screening 04/14/2024 Depression Screening 07/02/2024 Influenza Vaccine (#1) 2025 Cervical Cancer Screening: P ap Smear 02/11/2028 02/10/2025 DTaP,Tdap,and Td Vaccines (2 - Td or Tdap) 01/08/2033 01/08/2023 HIV Screening Completed 03/04/2024 Hepatitis C Screening Completed 03/04/2024 HIB Vaccines Aged Out No longer eligi ble based on patient's age to complete this topic HPV Vaccines Aged Out No longer eligi ble based on patient's age to complete this topic Hepatitis A Vaccines Aged Out No long er eligible based on patient's age to complete this topic IPV Vaccines Aged Out No longer eligi ble based on patient's age to complete this topic MMR Vaccines Aged Out No longer eligi ble based on patient's age to complete this topic Meningococcal ACWY Vaccine Aged Out N o longer eligible based on patient's age to complete this topic Meningococcal B Vaccine Aged Out No l onger eligible based on patient's age to complete this topic Pneumococcal Vaccine: Pediatrics (0 to 5 Years) and At-Risk Patients (6 to 49 Years) Aged Out No longer eligible b ased on patient's age to complete this topic RSV Immunization Patients Under 20 months Aged Out No longer eligible b ased on patient's age to complete this topic Varicella Vaccines Aged Out No longer eligible based on patient's age to complete this topic Procedures Procedure Name Priority Date/Time Associated Diagnosis Comments MR FOOT WO CONTRAST LEFT Routine 02/17/2025 6:25 PM EDT Plantar fascial fibromatosis MR FOOT WO CONTRAST RIGHT Routine 02/17/2025 6:08 PM EDT Plantar fascial fibromatosis XR FOOT 3+ VIEWS BILAT Routine 02/09/2025 3:41 PM EDT Follow-up exam from Last 3 Months Results * MR Foot wo Contrast Left (02/17/2025 6:25 PM EDT) Anatomical Region Laterality Modality Lower Extremities, Foot Left Magnetic Resonance 02/19/2025 2:4 1 PM EDT Impressions 02/19/2025 2:56 PM EDT No evidence of plantar fasciitis. Mild nonspecific intramuscular edema and edema in the subcutaneous fat adjacent to the plantar aspect of the calcaneus. -------- FINAL REPORT -------- Dictated By: Joe Austin Dictated Date: 02/19/2025 14:41 ET Assigned Physician: Joe Austin Reviewed and Electronically Signed By: Joe Austin Signed Date: 02/19/2025 14:56 ET Workstation ID: [id number] Transcribed By: Self Edit Transcribed Date: 02/19/2025 14:42 ET Narrative 02/19/2025 2:56 PM EDT PROCEDURE: MRI of the left hindfoot without intravenous contrast. HISTORY: Chronic plantar fasciitis. COMPARISON: None. TECHNIQUE: Multiplanar multisequence MRI of the left hindfoot without intravenous contrast administration. FINDINGS: Tendons: The Achilles tendon is normal in caliber, contour, and signal. There is trace fluid in the retrocalcaneal bursa. The peroneal tendons are normal. The medial flexor tendons are normal; there is a small amount of fluid in the tendon sheaths. The extensor tendons are normal. Ligaments: The anterior and posterior tibiofibular and talofibular ligaments are normal. Calcaneofibular ligament is normal. Deltoid complex and spring ligaments are normal. Plantar fascia: Normal. Bones: No marrow signal abnormality. No significant degenerative change. Soft tissues: No mass or fluid collection. There is mild edema in the musculature in the subcutaneous fat along the plantar aspect of the calcaneus. Procedure Note Joe Austin MD - 02/19/2025 PROCEDURE: MRI of the left hindfoot without intravenous contrast. HISTORY: Chronic plantar fasciitis. COMPARISON: None. TECHNIQUE: Multiplanar multisequence MRI of the left hindfoot withoutintravenous contrast administration. FINDINGS: Tendons: The Achilles tendon is normal in caliber, contour, and signal.There is trace fluid in the retrocalcaneal bursa. The peroneal tendonsare normal. The medial flexor tendons are normal; there is a small amountof fluid in the tendon sheaths. The extensor tendons are normal. Ligaments: The anterior and posterior tibiofibular and talofibularligaments are normal. Calcaneofibular ligament is normal. Deltoidcomplex and spring ligaments are normal. Plantar fascia: Normal. Bones: No marrow signal abnormality. No significant degenerativechange. Soft tissues: No mass or fluid collection. There is mild edema in themusculature in the subcutaneous fat along the plantar aspect of thecalcaneus. IMPRESSION: No evidence of plantar fasciitis. Mild nonspecific intramuscular edema and edema in the subcutaneous fatadjacent to the plantar aspect of the calcaneus. -------- FINAL REPORT -------- Dictated By: Joe Austin Dictated Date: 02/19/2025 14:41 ET Assigned Physician: Joe Austin Reviewed and Electronically Signed By: Joe Austin Signed Date: 02/19/2025 14:56 ET Workstation ID: [id number] Transcribed By: Self Edit Transcribed Date: 02/19/2025 14:42 ET Rickie Landa DPM IMG MRI PROCEDURES Final Result * MR Foot wo Contrast Right (02/17/2025 6:08 PM EDT) Anatomical Region Laterality Modality Lower Extremities, Foot Right Magnetic Resonance 02/19/2025 2:26 PM EDT Impressions 02/19/2025 2:38 PM EDT No MRI evidence of plantar fasciitis. Mild nonspecific intramuscular edema adjacent to the plantar aspect of the calcaneus. -------- FINAL REPORT -------- Dictated By: Joe Austin Dictated Date: 02/19/2025 14:26 ET Assigned Physician: Joe Austin Reviewed and Electronically Signed By: Joe Austin Signed Date: 02/19/2025 14:38 ET Workstation ID: [id number] Transcribed By: Self Edit Transcribed Date: 02/19/2025 14:26 ET Narrative 02/19/2025 2:38 PM EDT PROCEDURE: MRI of the right foot without intravenous contrast administration. HISTORY: Chronic plantar fasciitis. COMPARISON: None. TECHNIQUE: Multiplanar multisequence MRI of the right hindfoot without intravenous contrast administration. FINDINGS: Tendons: The Achilles tendon is normal in caliber, contour, and signal. There is trace fluid in the retrocalcaneal bursa. The peroneal tendons are normal. The medial flexor tendons are normal. The extensor tendons are normal. Ligaments: The anterior and posterior tibiofibular and talofibular ligaments are normal. Calcaneofibular ligament is normal. Deltoid complex and spring ligaments are normal. Plantar fascia: Normal. Bones: No marrow signal abnormality. No significant degenerative change. Soft tissues: No mass or fluid collection. There is mild edema in the musculature along the plantar aspect of the calcaneus. Procedure Note Joe Austin MD - 02/19/2025 PROCEDURE: MRI of the right foot without intravenous contrastadministration. HISTORY: Chronic plantar fasciitis. COMPARISON: None. TECHNIQUE: Multiplanar multisequence MRI of the right hindfoot withoutintravenous contrast administration. FINDINGS: Tendons: The Achilles tendon is normal in caliber, contour, and signal.There is trace fluid in the retrocalcaneal bursa. The peroneal tendonsare normal. The medial flexor tendons are normal. The extensor tendonsare normal. Ligaments: The anterior and posterior tibiofibular and talofibularligaments are normal. Calcaneofibular ligament is normal. Deltoidcomplex and spring ligaments are normal. Plantar fascia: Normal. Bones: No marrow signal abnormality. No significant degenerativechange. Soft tissues: No mass or fluid collection. There is mild edema in themusculature along the plantar aspect of the calcaneus. IMPRESSION: No MRI evidence of plantar fasciitis. Mild nonspecific intramuscularedema adjacent to the plantar aspect of the calcaneus. -------- FINAL REPORT -------- Dictated By: Joe Austin Dictated Date: 02/19/2025 14:26 ET Assigned Physician: Joe Austin Reviewed and Electronically Signed By: Joe Austin Signed Date: 02/19/2025 14:38 ET Workstation ID: [id number] Transcribed By: Self Edit Transcribed Date: 02/19/2025 14:26 ET Rickie Landa DPM IMG MRI PROCEDURES Final Result * XR Foot 3+ Views bilat (02/09/2025 3:41 PM EDT) Anatomical Region Laterality Modality Lower Extremities, Foot Bilateral Computed Radiography Narrative 02/09/2025 5:46 PM EDT Right foot 3 views No fracture. No radiopaque foreign joint spaces slight joint space narrowing TN joint Foot position rectus Normal talus navicular position normal calcaneal inclination normal symes line talus navicular joint to calcaneal cuboid joint Left foot 3 views No fracture. No radiopaque foreign joint spaces slight joint space narrowing of TN joint with osteophyte Foot position rectus Normal talus navicular position normal calcaneal inclination normal symes line talus navicular joint to calcaneal cuboid joint us Rickie Landa DPM IMG XR PROCEDURES Final R esult from Last 3 Months Insurance MEDICAID - [place] [address] Care Teams Boiler House Supervisor Relationship Specialty Start Date End Date Viridiana Ruth MD [address] [place] [phone] PCP - General 03/13/24
[2025-02-27 13:34] LABS: Hematocrit 40.9 % (37.0-47.0); Hemoglobin 14.2 g/dl (12.0-16.0); Mean Corpuscular HGB Conc 34.7 g/dl (31.0-35.0); Mean Corpuscular Hemoglobin 30.5 pg (27.0-33.0); Mean Corpuscular Volume 88.0 fL (80.0-98.0); NRBC Abs Auto 0.000 X10*3/uL (0.0-0.012); NRBC Pct Auto 0.0 /100WBC (0.0-0.2); Platelet Count 289 X10*3/uL (160-400); Red Blood Count 4.65 X10*6/uL (4.20-5.50); White Blood Count 7.5 X10*3/uL (4.8-10.8)
[2025-02-27 13:55] LABS: Hemoglobin A1C 120.4168 umol/L; Total Hemoglobin (HGBA1C) 3656.5497 umol/L
[2025-02-27 14:13] LABS: Alanine Aminotransferase 18 U/L (0-31); Albumin Level 5.0 g/dL (3.5-5.0); Alkaline Phosphatase 26 U/L (39-117); Anion Gap 12 (12-20); Aspartate Amino Transferase 25 U/L (5-31); Blood Urea Nitrogen 13 mg/dL (9-16); Calcium 9.5 mg/dL (8.4-10.2); Carbon Dioxide 28 mmol/L (22-29); Chloride 107 mmol/L (96-108); Cholesterol 161 mg/dL (<200); Estimated Glomerular Filt Rate 60; HDL Cholesterol 55 mg/dL (>40); Potassium 4.5 mmol/L (3.3-5.1); Sodium 142 mmol/L (135-145); Total Protein 7.3 g/dL (6.5-8.0); Triglycerides 57 mg/dL (<150)
[2025-02-27 16:07] LABS: CT PCR Urine NOT DETECTED (Not Detect.); NG PCR Urine NOT DETECTED (Not Detect.)
[2025-02-28 03:45] LABS: Syphilis Screen Nonreactive (Nonreactive)
[2025-02-28 03:53] LABS: HBsAGNum1 0.52 S/CO (0.00-0.99); HIV Num 1 0.06 S/CO (0.00-0.99); Hepatitis B Surface Antigen Negative (Negative); ~HepC Num1 0.09 S/CO (0.00-0.79); ~Hepatitis C Antibody Nonreactive (Nonreactive)
== END 2025-02-27 11:38 | disposition home or self-care (01) ==
LOC: HO.HHCL 11:37
PROVIDERS: PCP Student in an Organized Health Care Education/Training Program; Visit Provider Student in an Organized Health Care Education/Training Program
DX: Z00.00 Encounter for general adult medical examination without abnormal findings (principal); Z11.3 Encounter for screening for infections with a predominantly sexual mode of transmission; Z11.8 Encounter for screening for other infectious and parasitic diseases; Z11.4 Encounter for screening for human immunodeficiency virus [HIV]; Z11.59 Encounter for screening for other viral diseases; Z13.1 Encounter for screening for diabetes mellitus; Z13.6 Encounter for screening for cardiovascular disorders; Z13.29 Encounter for screening for other suspected endocrine disorder
CPT/HCPCS: 80053; 80061; 83036; 84443; 85027; 86780; 86803; 87340; 87389; 87491; 87591

== ENCOUNTER 2025-03-03 13:31 | Outpatient (REF) | payer BC, MEDICAID, SELFPAY ==
--- NOTE | ~2025-03-03 | US_ITS ---
EXAMINATION: US PELVIS CLINICAL INFORMATION: AUB LMP: 02/12/2026. COMPARISON: None available. TECHNIQUE: Ultrasound of the pelvis is performed using both transabdominal and transvaginal transducers along with Doppler. . FINDINGS: Uterus: The uterus is anteverted and measures 9 x 4 x 5 cm. Volume: 109 cc. The double wall endometrial thickness is 10 mm. The uterus is smooth in contour and has normal myometrial echogenicity. No gross uterine fibroid. Small nabothian cysts in the cervix. Adnexa: Both ovaries are identified.. Normal flow on color Doppler interrogation to the ovaries. No free fluid in the cul-de-sac. Right ovary measures 3 x 2 x 3 cm. Volume: 7.4 cc. Left ovary measures 4 x 2 x 3 cm. Volume: 11 cc. US/US pelvic and transvaginal IMPRESSION: No ovarian torsion. No uterine fibroid. Normal exam. Electronically signed by: Kaz Jean MD 03/03/2025 02:37 PM EDT
--- OUTSIDE RECORDS SUMMARY | 2025-03-03 14:48 | XMS_ITS | Encounter Summary ---
Author Organization [employer] Address [address] [place] [address] 7 [place] [address] Care Team Providers Care Software Testing Specialist Name Role Phone Viridiana Ruth MD Primary Care Pro vider Encounter Details Date Type Department Care Team (Latest Contact Info) Description 03/02/2025 Results Follow-Up [facility]INE [address] [place] [phone] Viridiana Ruth MD [address] [place] [address] Chlamydia/Trichomonas/ Neisseria gonorrhoeae, PCR, Urine, CBC, Comprehensive Metabolic Panel, Additional followed-up results: 7 Social History Tobacco Use Types Packs/Day Years [...] documented as of this encounter Care Teams Software Testing Specialist Relationship Specialty Start Date End Date Viridiana Ruth MD [address] [place] [phone] PCP - General Internal Medicine 11/10/22 documented as of this encounter
--- OUTSIDE RECORDS SUMMARY | 2025-03-03 14:48 | XMS_ITS | Encounter Summary ---
Author Organization [employer] Address [address] [place] [address] [place] [address] Care Team Providers Care Solar System Designer Name Role Phone Viridiana Ruth MD Primary Care Pro vider Reason for Visit * Reason Comments Med Refill Encounter Details Date Type Department Care Team ([facility] st Contact Info) Description 01/11/2023 Refill [facility] [address] [place], [place] [phone] Viridiana Ruth MD [address] [place] [address] Social History Tobacco Use Types Packs/Day Years [...] documented as of this encounter Care Teams Solar System Designer Relationship Specialty Start Date End Date Viridiana Ruth MD [address] [place] [phone] PCP - General Internal Medicine 11/10/22 documented as of this encounter
--- OUTSIDE RECORDS SUMMARY | 2025-03-03 14:48 | XMS_ITS | Encounter Summary ---
Author Organization [employer] Address [address] [place] [address] [place] [address] Care Team Providers Care Public Health Doctor Name Role Phone Viridiana Ruth MD Primary Care Pro vider Reason for Visit * Reason Onset Date Comments Appointment Request 01/25/2023 Encounter Details Date Type Department Care Team ([facility] st Contact Info) Description 01/25/2023 Telephone [facility] [address] [place], [place] [phone] Viridiana Ruth MD [address] [place] [address] Appointment Request Social History Tobacco Use Types [...] documented as of this encounter Care Teams Public Health Doctor Relationship Specialty Start Date End Date Viridiana Ruth MD [address] [place] [phone] PCP - General Internal Medicine 11/10/22 documented as of this encounter
--- OUTSIDE RECORDS SUMMARY | 2025-03-03 14:48 | XMS_ITS | Encounter Summary ---
Author Organization [employer] Address [address] [facility] [address] [place] [address] Care Team Providers Care Hospice Community Liaison Name Role Phone Viridiana Ruth MD Primary Care Pro vider Encounter Details Date Type Department Care Team ([facility] st Contact Info) Description 02/16/2025 Results Follow-Up [facility]INE [address] [place], [place] [phone] Rochelle Baldwin, JAIDA [address] [place] [address] Pap Smear Social History Tobacco Use Types [...] documented as of this encounter Care Teams Hospice Community Liaison Relationship Specialty Start Date End Date Viridiana Ruth MD [address] [place] [phone] PCP - General Internal Medicine 11/10/22 documented as of this encounter
--- OUTSIDE RECORDS SUMMARY | 2025-03-03 14:48 | XMS_ITS | Clinical Summary ---
Author Organization [employer] Address [address] [facility] [address] [place] [address] Care Team Providers Care Spike Maker Name Role Phone Viridiana Ruth MD Primary [...] rheumatoid factor neg. CK wnl. -Referred to network support administrator today. Raynaud disease 01/08/2023 Assessment & Plan [...] scleroderma, or polymyositis overlap. 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 Patient will benefit from Ind. Therapy [...] treatment engagement. PLAN: 1. Follow up with [facility]: Not recommended for follow-up 2. Patient goal is to learn to manage her sxs. 3. Behavioral Recommendations a. Ind. Therapy b. Use of coping Skills discussed c. [facility] contact number for support. Assessment & Plan (01/08/2023 9:33 PM EDT): PHQ-9 10. -Reports feeling sad, anxious since last 17 years , denies jordana,hallucinations. Denies SI , never tx for depression before. Denies fx hx of psychiatric conditions. -BH spoke w pt today and will refer [...] exam done in 12/2022 - not in [employer] system, but to be scanned -Vaccines: s/p [...] Encounters Date Type Department Care Team Description 03/02/2025 Results Follow-Up [facility] [address] [place] [address] Viridiana Ruth MD Chlamydia/Trichomonas /Neisseria gonorrhoeae, PCR, Urine, CBC, Comprehensive Metabolic Panel, Additional followed-up results: 7 02/16/2025 Results Follow-Up [address] [address] Skyler Mckenna CNM Pap Smear 02/10/2025 3:15 PM EDT Office Visit [address] [address] Skyler Mckenna CNM Cervical cancer screening (Primary Dx); Abnormal uterine bleeding 02/10/2025 Travel 02/10/2025 Telephone [facility] [address] [place] [phone] Trinh, [place], [place] 01/26/2025 Telephone [facility] [address] [place] [phone] Ziggy [place], [place] 01/19/2025 2:00 PM EDT Office Visit [address] [address] Viridiana Ruth MD Abnormal tympanic membrane of both ears (Primary Dx); Dietary counseling; Exercise counseling; Annual physical exam; Raynaud's disease without gangrene; Health care maintenance; Family history of cancer; Depression with anxiety; History of alcohol abuse; Bilateral foot pain; Nevus of multiple sites; Overweight (BMI 25.0-29.9) 01/19/2025 Travel 01/16/[address] [address] Viridiana Ruth MD Chart Prep 01/12/2025 Patient Outreach [facility] [address] [place], [place] [phone] Viridiana Ruth MD Pre-visit Planning (SDOH negative. [...] 3-dose series) 2004 COVID-19 Vaccine ( - season) 2025 01/08/2023, 08/24/2020, 07/27/2020 Influenza Vaccine (#1) 2025 SDOH Screening 01/12/2026 01/12/2025 Alcohol/Substance Use Screening 01/19/2026 01/19/2025 Depression Screening 01/19/2026 01/19/2025, 01/20/20 25 Disability Screening 01/19/2026 01/19/2025 Tobacco Screening 02/10/2026 [...] 1-dose 75+ series) 2060 HIV Screening Completed 02/27/2025, 09/0 08/2023, 01/19/2021 Hepatitis C Screening Completed 02/27/2025 , 03/04/2024, 01/19/2021 HIB Vaccines Aged Out No longer eligi [...] Procedure Name Priority Date/Time Associated Diagnosis Comments US PELVIS TRANSVAGINAL Urgent 1:50 PM EDT Abnormal uterine bleeding TSH W/REFLEX TO FT4 Routine 02/27/2025 1 1:50 AM EDT Annual physical exam SYPHILIS SCREEN Routine 02/27/2025 11:50 AM EDT Annual physical exam LIPID PANEL, STANDARD Routine 02/27/2025 11:50 AM EDT Annual physical exam HIV 1/2 ANTIGEN/ANTIBODY, FOURTH GENERATION W/RFL Routine 02/27/2025 11:50 AM EDT Annual physical exam HEPATITIS C AB W/REFL TO HCV RNA, QN, PCR Routine 02/27/2025 11:50 AM EDT Annual physical exam HEPATITIS B SURFACE ANTIGEN, EIA Routine 02/27/2025 11:50 AM EDT Annual physical exam HEMOGLOBIN A1C Routine 02/27/2025 11:50 AM EDT Annual physical exam COMPREHENSIVE METABOLIC PANEL Routine 02/27/2025 11:50 AM EDT Annual physical exam CBC Routine 02/27/2025 11:50 AM EDT Annual physical exam CHLAMYDIA/TRICHOMONAS/ NEISSERIA GONORRHOEAE, PCR, URINE Routine 02/27/2025 11:50 AM EDT Annual physical exam PAP SMEAR Routine 02/10/2025 4:03 PM EDT Cervical cancer screening HPV DNA, LOW/HIGH RISK Routine 4:03 PM EDT Bilateral foot pain from Last 3 Months Results * US Pelvis Transvaginal (03/03/2025 1:50 PM EDT) Anatomical Region Laterality Modality Pelvis Ultrasound 03/03/2025 1:50 PM EDT Narrative 03/03/2025 2:40 PM EDT [place] [address] Ultrasound Report Signed Patient: Sun Ferrer MR#: [id number] : 1985 Acct:[id number] Age/Sex: 39 / F ADM Date: 03/03/25 Loc: HO.US Attending Dr: Skyler Mckenna CNM Ordering Physician: SKYLER MCKENNA CNM Date of Service: 03/03/25 Procedure(s): US pelvic and transvaginal Accession Number(s): [id number] cc: Viridiana Ruth MD; SKYLER MCKENNA CNM Reason for Exam: AUB EXAMINATION: US PELVIS CLINICAL INFORMATION: AUB LMP: 02/12/2026. COMPARISON: None available. TECHNIQUE: Ultrasound of the pelvis is performed using both transabdominal and transvaginal transducers along with Doppler. . FINDINGS: Uterus: The uterus is anteverted and measures 9 x 4 x 5 cm. Volume: 109 cc. The double wall endometrial thickness is 10 mm. The uterus is smooth in contour and has normal myometrial echogenicity. No gross uterine fibroid. Small nabothian cysts in the cervix. Adnexa: Both ovaries are identified.. Normal flow on color Doppler interrogation to the ovaries. No free fluid in the cul-de-sac. Right ovary measures 3 x 2 x 3 cm. Volume: 7.4 cc. Left ovary measures 4 x 2 x 3 cm. Volume: 11 cc. US/US pelvic and transvaginal IMPRESSION: No ovarian torsion. No uterine fibroid. Normal exam. Electronically signed by: Kaz Jean MD 03/03/2025 02:37 PM EDT RP Dictated By: Kaz Jaramillo MD Signed By: <Electronically signed by Kaz Denis MD in OV> 03/03/25 1437 DD/ 1350 TD/TT: 03/03/25 1410 Costume Rental Clerk: Procedure Note Donotuseinterpreter, Image - 03/03/[address] [address] Ultrasound Report Signed Patient: Sun Ferrer BMR#: [id number] : 1985Acct:[id number] Age/Sex: 39 / FADM Date: 03/03/25 Loc: HO.US Attending Dr: Skyler Mckenna CNM Ordering Physician: SKYLER MCKENNA CNM Date of Service: 03/03/25 Procedure(s): US pelvic and transvaginal Accession Number(s): [id number] cc: Viridiana Ruth MD; SKYLER MCKENNA CNM Reason for Exam: AUB EXAMINATION: US PELVIS CLINICAL INFORMATION: AUB LMP: 02/12/2026. COMPARISON: None available. TECHNIQUE: Ultrasound of the pelvis is performed using both transabdominal and transvaginal transducers along with Doppler. . FINDINGS: Uterus: The uterus is anteverted and measures 9 x 4 x 5 cm. Volume: 109 cc. The double wall endometrial thickness is 10 mm. The uterus is smooth in contour and has normal myometrial echogenicity. No gross uterine fibroid. Small nabothian cysts in the cervix. Adnexa: Both ovaries are identified.. Normal flow on color Doppler interrogation to the ovaries. No free fluid in the cul-de-sac. Right ovary measures 3 x 2 x 3 cm. Volume: 7.4 cc. Left ovary measures 4 x 2 x 3 cm. Volume: 11 cc. US/US pelvic and transvaginal IMPRESSION: No ovarian torsion. No uterine fibroid. Normal exam. Electronically signed by: Kaz Jean MD 03/03/2025 02:37 PM EDT RP Dictated By: Kaz Jaramillo MD Signed By: <Electronically signed by Kaz Denis MDin OV> 03/03/25 1437 DD/ 1350 TD/TT: 03/03/25 1410 Costume Rental Clerk: [facility] PROCEDURES Final R esult * Chlamydia/Trichomonas/Neisseria gonorrhoeae, PCR, Urine (02/27/2025 11:50 AM EDT) CT PCR, Urine NOT DETECTED Not Detect. [facility] Comment:A not detected test result does not exclude the possibilityof infection because test results can be affected byimproper specimen collection, concurrent antibiotic therapy,or the number of organisms in the specimen which may bebelow the sensitivity of the test. As with many diagnostictests, results from the Xpert CT/NG assay should beinterpreted in conjunction with other laboratory andclinical data available to the clinician.The Xpert CT/NG assay should not be used for the evaluationof suspected sexual abuse or for other medico-legalindications. Additional testing is recommended in anycircumstance when false positive or false negative resultscould lead to adverse medical, social or psychologicalconsequences. NG PCR, Urine NOT DETECTED Not Detect. [facility] Comment:A not detected test result does not exclude the possibilityof infection because test results can be affected byimproper specimen collection, concurrent antibiotic therapy,or the number of organisms in the specimen which may bebelow the sensitivity of the test. As with many diagnostictests, results from the Xpert CT/NG assay should beinterpreted in conjunction with other laboratory andclinical data available to the clinician.The Xpert CT/NG assay should not be used for the evaluationof suspected sexual abuse or for other medico-legalindications. Additional testing is recommended in anycircumstance when false positive or false negative resultscould lead to adverse medical, social or psychologicalconsequences. Urine (Urine, Random) 02/27/2025 11:50 AM EDT 02/27/2025 1:26 PM EDT us Viridiana Anderson MD LAB URINE ORDERAB LES Final Result Performing Organization Address [facility] Co de Phone Number [facility] [address] [place] [phone] * Syphilis Screen (02/27/2025 11:50 AM EDT) Syphilis Screen Nonreactive Nonreactive [facility] Blood 02/27/2025 11:5 0 AM EDT 02/27/2025 1:25 PM EDT us Viridiana Anderson MD LAB BLOOD ORDERAB LES Final Result Performing Organization Address [facility] Phone Number [facility] [address] [place] [phone] * TSH with Reflex to Free T4 (02/27/2025 11:50 AM EDT) [facility] [address] TSH reflex Free T4 0.67 0.32 - 4.0 uIU/mL [facility] Blood 02/27/2025 11:5 0 AM EDT 02/27/2025 1:25 PM EDT us Viridiana Anderson MD LAB BLOOD ORDERAB LES Final Result Performing Organization Address [facility] de Phone Number [facility] [address] [place] [phone] * Hepatitis C Antibody with Reflex to HCV, RNA, Quantitative, Real-Time PCR (02/27/2025 11:50 AM EDT) [facility] [address] Hepatitis C Antibody Nonreactive Nonreactive [facility] Comment:Antibodies to HCV no t detected; does not exclude early acuteHCV infection. Blood Venous blood specimen / Unknown 02/27/2025 11:50 AM EDT 02/27/2025 1:25 PM EDT Viridiana Anderson MD LAB BLOOD ORDERAB LES Final Result Performing Organization Address City/[facility]/ZIP Co de Phone Number [facility] [address] [place] [phone] * Hepatitis B surface antigen, EIA (02/27/2025 11:50 AM EDT) Hepatitis B Surface Ag Negative Negative [facility] Blood Venous blood specimen / Unknown 02/27/2025 11:50 AM EDT 02/27/2025 1:25 PM EDT Viridiana Anderson MD LAB BLOOD ORDERAB LES Final Result Performing Organization Address [facility] Co de Phone Number [facility] [address] [place] [phone] * HIV-1/2 Antigen and Antibodies, Fourth Generation, with Reflexes (02/27/2025 11:50 AM EDT) [facility] [address] HIV AB/AG Nonreactive Nonreactive [facility] Comment:HIV-1 p24 Ag and/or HIV-1/HIV-2 Ab not detected.A test result that is nonreactive does not exclude thepossibility of exposure to or infection with HIV-1 and/orHIV-2. Nonreactive results in this assay for individualswith prior exposure to HIV-1 and/or HIV-2 may be due toantigen and antibody levels that are below the limit ofdetection of this assay.The [facility] HIV Ag/Ab Combo assay result andsupplemental assay results should be interpreted inconjunction with the patient's clinical presentation,history and other laboratory results. If the results areinconsistent with clinical evidence, additional testing issuggested to confirm the result. Blood Venous blood specimen / Unknown 02/27/2025 11:50 AM EDT 02/27/2025 1:25 PM EDT Viridiana Anderson MD LAB BLOOD ORDERAB LES Final Result [facility] [address] [place] [phone] * CBC (02/27/2025 11:50 AM EDT) White Blood Count 7.5 4.8 - 10.8 X10*3/uL [facility] Red Blood Count 4.65 4.20 - 5.50 X10*6/uL [facility] Hemoglobin 14.2 12.0 - 16.0 g/dl [facility] Hematocrit 40.9 37.0 - 47.0 % [facility] Mean Corpuscular Volume 88.0 80.0 - 98.0 fL [facility] Mean Corpuscular Hemoglobin 30.5 27.0 - 33.0 pg [facility] Mean Corpuscular HGB Conc 34.7 31.0 - 35.0 g/dl [facility] Red Cell Distribution Width 12.3 11.0 - 16.0 % [facility] Platelet Count 289 160 - 400 X10*3/uL [facility] Mean Platelet Volume 11.2 9.4 - 12.3 fL [facility] NRBC Pct Auto 0.0 0.0 - 0.2 /100WBC [facility] NRBC Abs Auto 0.000 0.0 - 0.012 X10*3/uL [facility] Blood Venous blood specimen / Unknown 02/27/2025 11:50 AM EDT 02/27/2025 1:25 PM EDT us Viridiana Anderson MD LAB BLOOD ORDERAB LES Final Result Performing Organization Address City/[facility]/ZIP Co de Phone Number [facility] [address] [place] [phone] * Hemoglobin A1c (02/27/2025 11:50 AM EDT) Hemoglobin A1c 5.2 <6.0 % [facility] Comment:Hemoglobin A1C Refer ence Range Adults: 4.8 - 6.0 % Non diabetic: < 6.0 % Goal: < 7.0 %Additional Action Suggested: > 8.0 %Note: Hemoglobin A1c results are invalid for patients with abnormal amounts of HbF. Blood transfusions may impact the HbA1c concentration in the patient sample. Estimated Average Glucose 103 mg/dL [facility] Comment:eAG = Estimated ave rage glucose which is %A1C expressed asaverage glucose, using the formula of the E3C-ZpzulfoYccwcww Glucose study (ADAG), Diabetes Care, Vol.31,#8,2007 Blood Venous blood specimen / Unknown 02/27/2025 11:50 AM EDT 02/27/2025 1:25 PM EDT us Viridiana Anderson MD LAB BLOOD ORDERAB LES Final Result [facility] [address] [place] [phone] * Lipid Panel, Standard (02/27/2025 11:50 AM EDT) Triglycerides 57 <150 mg/dL [facility] Comment:Desirable Triglyceri de: less than 150 mg/dLBorderline High Triglyceride 150-199 mg/dLHigh Triglyceride: 200-499 mg/dLVery High Triglyceride: greater than or equal to 5OO mg/dL Cholesterol 161 <200 mg/dL [facility] Comment:Desirable Cholestero l: less than 200 mg/dLBorderline High Cholesterol: 200-239 mg/dLHigh Cholesterol: greater than 239 mg/dL LDL Cholesterol Calculated 95 <100 mg/dL [facility] Comment:Desirable LDL: less than 100 mg/dLNear Optimal/Above Optimal LDL: 110- 129 mg/dLBorderline High LDL: 130-159 mg/dLHigh LDL: 160-189 mg/dLVery High LDL: greater than or equal to 190 mg/dL HDL Cholesterol 55 >40 mg/dL [facility] Comment:Desirable HDL: great er than 40 mg/dL Note: This HDL assay may give artificially low results in patients with liver disease. Blood Venous blood specimen / Unknown 02/27/2025 11:50 AM EDT 02/27/2025 1:25 PM EDT Viridiana Anderson MD LAB BLOOD ORDERAB LES Final Result [facility] [address] [place] [phone] * (ABNORMAL) Comprehensive Metabolic Panel (02/27/2025 11:50 AM EDT) Sodium 142 135 - 145 mmol/L [facility] Potassium 4.5 3.3 - 5.1 mmol/L [facility] Chloride 107 96 - 108 mmol/L [facility] Carbon Dioxide 28 22 - 29 mmol/L [facility] Anion Gap 12 12 - 20 [facility] Urea Nitrogen (BUN) 13 9 - 16 mg/dL [facility] Creatinine, Serum 1.03 0.5 - 1.4 mg/dL [facility] Estimated Glomerular Filt Rate 60 [facility] Comment:Chronic Kidney Disea se: Estimated GFR < 60 mL/min/1.21x4Lgelim Kidney Disease: Estimated GFR < 15 mL/min/1.73m2 Glucose 97 60 - 115 mg/dL [facility] Calcium 9.5 8.4 - 10.2 mg/dL [facility] Bilirubin, Total 1.0 0.0 - 1.0 mg/dL [facility] Aspartate Amino Transferase 25 5 - 31 U/L [facility] Alanine Aminotransferase 18 0 - 31 U/L [facility] Total Protein 7.3 6.5 - 8.0 g/dL [facility] Albumin Level 5.0 3.5 - 5.0 g/dL [facility] Alkaline Phosphatase 26(L) 39 - 117 U/L [facility] Blood Venous blood specimen / Unknown 02/27/2025 11:50 AM EDT 02/27/2025 1:25 PM EDT us Viridiana Anderson MD LAB BLOOD ORDERAB LES Final Result Performing Organization Address [facility]/ZIP Co de Phone Number [facility] [address] [place] [phone] * HPV DNA, Low/High Risk (02/10/2025 4:03 PM EDT) HPV High Risk Negative Negative [facility] HPV Genotype 16 Negative Negative [facility] HPV Genotype 18 Negative Negative [facility] Comment:HPV testing performe d at [facility] (CLIA#[id number]), [address] [place] [address].Testing for HPV was performed using the [employer]system. The presence of HPV in the female [...] EDT 02/11/2025 8:14 AM EDT us Skyler Mckenna CNM LAB BLOOD ORDERABLES Lisa l Result Performing Organization Address [facility]/ZIP Co de Phone Number [facility] [address] [place] [phone] * Pap Smear (02/10/2025 4:03 PM EDT) Swab Cervix uteri structure / Unknown 02/10/2025 4:03 PM EDT 02/11/2025 8:14 AM EDT Narrative [facility] - 02/13/2025 10:14 AM EDT ----- ------- Name: Sun Ferrer Age/Sex: 39/F : 1985 Unit#: [id number] Attend Dr: SKYLER MCKENNA CNM Re02/10/25 Status: DEP [facility] Disch: ----- ------- SPEC : [id number] RECD: 02/11/25 STATUS: SANTINO BROOKS NUM: [id number] KAREN: 02/10/25-16[address] [facility] [address]: SKYLER MCKENNA CNM ENTERED: 02/11/25 SP [...] and HPV testing will be performed at [facility] (CLIA #[id number]), [address] [place] [address]. Testing for HPV was performed using the [...] detected. All professional services are performed by [facility] ([address] [place] [phone]; ; CLIA #[id number]). The PAP Test is a screening procedure [...] SENA LAB CYTOLOGY ORDERABLES F inal Result [facility] [address] [place] [phone] from Last 3 Months Insurance [employer] Care Teams Spike Maker Relationship Specialty Start Date End Date Viridiana Ruth MD [address] [place] [phone] PCP - General Internal Medicine 11/10/22
--- OUTSIDE RECORDS SUMMARY | 2025-03-03 14:48 | XMS_ITS | Clinical Summary ---
Author Organization [address] [facility] Address [address] [place] [phone] Phone Care Team Providers Care Digester Hand Name Role Phone Viridiana Ruth MD Primary [...] - 02/17/2025 11:59 PM EDT Hospital Encounter [facility] MRI [address] [place] [phone] Plantar fascial fibromatosis Discharge Disposition: Home or Self Care 02/17/2025 5:15 PM EDT - 02/17/2025 11:59 PM EDT Hospital Encounter [facility] MRI [address] [place] [phone] Plantar fascial fibromatosis Discharge Disposition: Home or Self Care 02/09/2025 2:45 PM EDT Office Visit Orthopedic Surgery [facility] [address] [facility] [address] [place] [phone] Rickie Landa DPM Plantar fascial fibromatosis (Primary [...] Upcoming Encounters Date Type Department Care Team ([facility] st Contact Info) Description 03/19/2025 11:00 AM EDT Evaluation Outpatient Rehabilitation [address] [phone] Bishnu Cerda, FADUMO 03/30/2025 1:30 PM EDT Office Visit Orthopedic Surgery - [place] [address] [phone] Rickie Landa, DPM [address] [phone] Health Maintenance Due Date Last Done Comments Hepatitis B Vaccines (1 of 3 - 19+ 3-dose series) 2004 Social Influencers of Health Screening 04/14/2024 Depression Screening 07/02/2024 COVID-19 Vaccine (4 - 2024-2 6 season) 2025 01/08/2023, 08/24/2020, 07/27/2020 Influenza Vaccine (#1) 2025 Cervical Cancer Screening: [...] Lower Extremities, Foot Left Magnetic Resonance 02/19/2025 2:41 PM EDT Impressions 02/19/2025 2:56 PM EDT No evidence of plantar fasciitis. Mild nonspecific intramuscular edema and edema in the subcutaneous fat adjacent to the plantar aspect of the calcaneus. -------- FINAL REPORT -------- Dictated By: Joe Austin Dictated Date: 02/19/2025 14:41 ET Assigned Physician: Joe Austin Reviewed and Electronically Signed By: Joe Austin Signed Date: 02/19/2025 14:56 ET Workstation ID: [id number] Transcribed By: Self Edit Transcribed Date: 02/19/2025 [...] Signed Date: 02/19/2025 14:56 ET Workstation ID: [id number] Transcribed By: Self Edit Transcribed Date: 02/19/2025 14:42 ET Rickie Landa DPRebecca IMG MRI PROCEDURES Final Result * MR [...] Signed Date: 02/19/2025 14:38 ET Workstation ID: [id number] Transcribed By: Self Edit Transcribed Date: 02/19/2025 [...] Signed Date: 02/19/2025 14:38 ET Workstation ID: [id number] Transcribed By: Self Edit Transcribed Date: 02/19/2025 14:26 ET us Rickie Landa DPM IMG MRI PROCEDURES Final [...] Last 3 Months Insurance MEDICAID - [place] [facility] Care Teams Digester Hand Relationship Specialty Start Date End Date Viridiana Ruth MD [address] [place] [phone] PCP - General 03/13/24
== END 2025-03-03 13:32 | disposition home or self-care (01) ==
LOC: HO.US 13:31
PROVIDERS: PCP Student in an Organized Health Care Education/Training Program; Visit Provider Advanced Practice Midwife
DX: N93.9 Abnormal uterine and vaginal bleeding, unspecified (principal)
CPT/HCPCS: 76830; 76856

== ENCOUNTER → 2025-03-03 13:32 | Outpatient (BNV) | payer BC, MEDICAID, SELFPAY | PROVIDERS: PCP Student in an Organized Health Care Education/Training Program; Visit Provider Radiology Diagnostic Radiology | DX: N93.9 Abnormal uterine and vaginal bleeding, unspecified (principal) | CPT/HCPCS: 76830; 76856 ==